=== PATIENT | female | born 1995 | race Caucasian/White ===

== ENCOUNTER 2019-01-27 12:13 | Emergency (ER) | payer OTHER ==
--- NOTE | 2019-01-27 14:03 | EDM.PDOC ---
Scribed by Lulu Fierro 01/27/19 [id number] for Agnieszka Bain NP ED HPI GENERAL MEDICAL PROBLEM - General Chief Complaint: Upper Extremity Injury/Pain Stated Complaint: WORK COMP FINGER [id number] Time Seen by Provider: 01/27/19 12:35 Source of Information: Reports: Patient, RN, RN Notes Reviewed History Limitations: Reports: No Limitations - History of Present Illness INITIAL COMMENTS - FREE TEXT/NARRATIVE: Patient presents to ER with complaint of left pinky finger pain. States she fell in the ambulance on Monday (at work) landing on left pinky finger. She is complaining of bruising and decreased range of motion of finger. Onset: Sudden Onset Date: 01/25/19 Duration: Getting Worse Location: Reports: Upper Extremity, Left Quality: Reports: Ache Severity: Mild Improves with: Reports: None Worsens with: Reports: None Associated Symptoms: Reports: No Other Symptoms - Related Data Allergies Allergy/AdvReac Type Severity Reaction Status Date / Time adhesive Allergy Rash Verified 01/27/19 12:26 amoxicillin Allergy Rash Verified 01/27/19 12:26 erythromycin base Allergy Rash Verified 01/27/19 12:26 latex Allergy Rash Verified 01/27/19 12:26 Home Meds: Home Meds Dextroamphetamine/Amphetamine [Adderall 5 mg Tablet] 01/27/19 [History] LORazepam 1 mg PO BEDTIME 01/27/19 [History] buPROPion [Wellbutrin SR] 150 mg PO QAM 01/27/19 [History] Past Medical History Genitourinary History: Reports: Other (See Below) Other Genitourinary History: Endometriosis Psychiatric History: Reports: Depression Social & Family History - Tobacco Use Smoking Status *Q: Never Smoker - Caffeine Use Caffeine Use: Reports: Energy Drinks Caffeine Use Comment: 1 energy drink daily. - Recreational Drug Use Recreational Drug Use: No Review of Systems - Review of Systems Review Of Systems: ROS reveals no pertinent complaints other than HPI. ED EXAM, GENERAL - Physical Exam Exam: See Below Exam Limited By: No Limitations General Appearance: Alert, WD/WN, No Apparent Distress Eye Exam: Bilateral Eye: EOMI, Normal Inspection, PERRL Ears: Normal External Exam, Normal Canal, Hearing Grossly Normal, Normal TMs Nose: Normal Inspection, Normal Mucosa, No Blood Throat/Mouth: Normal Inspection, Normal Lips, Normal Teeth, Normal Gums, Normal Oropharynx, Normal Voice, No Airway Compromise Head: Atraumatic, Normocephalic Neck: Normal Inspection, Supple, Non-Tender, Full Range of Motion Respiratory/Chest: No Respiratory Distress, Lungs Clear, Normal Breath Sounds, No Accessory Muscle Use, Chest Non-Tender Cardiovascular: Normal Peripheral Pulses, Regular Rate, Rhythm, No Edema, No Gallop, No JVD, No Murmur, No Rub GI/Abdominal: Normal Bowel Sounds, Soft, Non-Tender, No Organomegaly, No Distention, No Abnormal Bruit, No Mass (Female) Exam: Deferred Rectal (Female) Exam: Deferred Back Exam: Normal Inspection, Full Range of Motion, NT Extremities: Other (left 5th digit ecchymosis ventral. Decreased range of motion. Abrasion dorsal.) Neurological: Alert, Oriented, CN II-XII Intact, Normal Cognition, Normal Gait, Normal Reflexes, No Motor/Sensory Deficits Psychiatric: Normal Affect, Normal Mood Skin Exam: Other (abrasion left pinky dorsal.) Lymphatic: No Adenopathy Course - Vital Signs Last Recorded V/S: Last Vital Signs Temp 98.3 F 01/27/19 12:28 Pulse 100 01/27/19 12:28 Resp 16 01/27/19 12:28 BP 154/83 H 01/27/19 12:28 Pulse Ox 100 01/27/19 12:28 - Orders/Labs/Meds Orders: Active Orders 24 hr Category Date Time Status Fingers Fifth Digit Lt F4 [CR] Urgent Exams 01/27/19 12:33 Taken - Radiology Interpretation Free Text/Narrative:: left pinky xray: FINDINGS: Bones/joints: No acute fracture. No dislocation. Alignment is normal. Bone mineralization is normal. No erosions are seen. No significant degenerative change. Soft tissues: No focal soft tissue swelling. IMPRESSION: No acute osseous abnormality. Thank you for allowing us to participate in the care of your patient. Dictated and Authenticated by: Jordyn Frederick MD 01/27/2019 2:01 PM Central Time ([place] & [place]) See rad report Departure - Departure Time of Disposition: 12:58 Disposition: Home, Self-Care 01 Condition: Good Clinical Impression: Sprain of finger of left hand Qualifiers: Encounter type: initial encounter Finger: little finger Sprain of finger site: interphalangeal joint Qualified Code(s): S63.637A - Sprain of interphalangeal joint of left little finger, initial encounter - Discharge Information *PRESCRIPTION DRUG MONITORING PROGRAM REVIEWED*: No *COPY OF PRESCRIPTION DRUG MONITORING REPORT IN PATIENT CHIDI: No Instructions: Finger Sprain, Adult, [id number] Forms: ED Department Discharge Additional Instructions: May use Tylenol and/or Ibuprofen as directed for pain Use finger splint as tolerated Follow up with your primary care facility as necessary - My Orders Last 24 Hours: My Active Orders 01/27/19 12:33 Fingers Fifth Digit Lt F4 [CR] Urgent - Assessment/Plan Last 24 Hours: My Active Orders 01/27/19 12:33 Fingers Fifth Digit Lt F4 [CR] Urgent I have read and agree with the documentation that has been completed regarding this visit. By signing this record, I attest that the documentation was completed in my physical presence and is an accurate record of the encounter.
== END 2019-01-27 13:04 | disposition home or self-care (01) ==
LOC: DL.ED 12:13
DX: S63.637A Sprain of interphalangeal joint of left little finger, initial encounter (principal); F32.9 Major depressive disorder, single episode, unspecified; Z79.899 Other long term (current) drug therapy; Z88.1 Allergy status to other antibiotic agents; Z88.8 Allergy status to other drugs, medicaments and biological substances; Z91.040 Latex allergy status; Z91.048 Other nonmedicinal substance allergy status; W19.XXXA Unspecified fall, initial encounter; Y92.89 Other specified places as the place of occurrence of the external cause; Y99.0 Civilian activity done for income or pay
CPT/HCPCS: 73140-F4; 99283-25

== ENCOUNTER 2019-04-08 22:42 | Emergency (ER) | payer OTHER ==
[~2019-04-08 22:42] MED LIST: Diphtheria,Pertussis(Acell),Tetanus Vaccine 0.5 ML SDV IM ONE
--- NOTE | 2019-04-08 23:24 | EDM.PDOC ---
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) Left Anterior Hand Pain Score (Numeric/FACES): 1 - Related Data Allergies Allergy/AdvReac Type Severity Reaction Status Date / Time adhesive Allergy Rash Verified 04/08/19 22:32 amoxicillin Allergy Rash Verified 04/08/19 22:32 erythromycin base Allergy Rash Verified 04/08/19 22:32 latex Allergy Rash Verified 04/08/19 22:32 Past Medical History - Past Health History Medical/Surgical History: Denies Medical/Surgical History HEENT History: Reports: None Cardiovascular History: Reports: Heart Murmur Respiratory History: Reports: None Gastrointestinal History: Reports: None Genitourinary History: Reports: Other (See Below) Other Genitourinary History: Endometriosis 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 Musculoskeletal History: Reports: Fracture Other Musculoskeletal History: LEFT ulna Psychiatric History: Reports: Depression Endocrine/Metabolic History: Reports: None Hematologic History: Reports: None Immunologic History: Reports: None Oncologic (Cancer) History: Reports: None Dermatologic History: Reports: None - Infectious Disease History Infectious Disease History: Reports: Chicken Pox - Past Surgical History Head Surgeries/Procedures: Reports: None HEENT Surgical History: Reports: None Cardiovascular Surgical History: Reports: None Respiratory Surgical History: Reports: None GI Surgical History: Reports: None Female Surgical History: Reports: None Endocrine Surgical History: Reports: None Musculoskeletal Surgical History: Reports: Shoulder Surgery Other Musculoskeletal Surgeries/Procedures:: LEFT Dermatological Surgical History: Reports: None Social & Family History - Family History Family Medical History: Noncontributory - Tobacco Use Smoking Status *Q: Never Smoker Second Hand Smoke Exposure: No - Caffeine Use Caffeine Use: Reports: Energy Drinks Caffeine Use Comment: 1 energy drink daily. - Recreational Drug Use Recreational Drug Use: No ED ROS GENERAL - Review of Systems Review Of Systems: See Below Constitutional: Reports: No Symptoms Musculoskeletal: Reports: Hand Pain Skin: Reports: No Symptoms Psychiatric: Reports: No Symptoms ED EXAM, SKIN/RASH Exam: See Below Exam Limited By: No Limitations General Appearance: Alert, WD/WN, No Apparent Distress Extremities: Normal Inspection, Normal Range of Motion, Non-Tender, No Pedal Edema, Normal Capillary Refill, Other (0.2 cm superficial laceration on the palm of the left hand.) Lymphatic: No Adenopathy Course - Vital Signs Last Recorded V/S: Last Vital Signs Temp 98 F 04/08/19 22:23 Pulse 94 04/08/19 22:23 Resp 18 04/08/19 22:23 BP 139/81 04/08/19 22:23 Pulse Ox 100 04/08/19 22:23 - Orders/Labs/Meds Meds: Medications Discontinued Medications Generic Name Dose Route Start Last Admin Trade Name Freq PRN Reason Stop Dose Admin Diphtheria/Tetanus/Acell Pertussis 0.5 ml 04/08/19 22:41 04/08/19 22:47 Adacel IM 04/08/19 22:42 0.5 ml .ONCE ONE Administration - Re-Assessments/Exams Free Text/Narrative Re-Assessment/Exam: Laceration cleaned with bandaid applied. Tetanus shot administered. Encouraged patient to keep wound clean. Departure - Departure Time of Disposition: 22:49 Disposition: Home, Self-Care 01 Clinical Impression: Laceration - Discharge Information Instructions: Puncture Wound, [id number] Referrals: PCP,Unobtain [Ordering Only Provider] - Forms: ED Department Discharge Additional Instructions: Follow up with PCP. Sepsis Event Note - Evaluation Sepsis Screening Result: No Definite Risk - Focused Exam Date Exam was Performed: 04/10/19 Time Exam was Performed: 04:03
== END 2019-04-08 22:50 | disposition home or self-care (01) ==
LOC: DL.ED 22:42
DX: S61.412A Laceration without foreign body of left hand, initial encounter (principal); Z23 Encounter for immunization; Z88.8 Allergy status to other drugs, medicaments and biological substances; Z88.1 Allergy status to other antibiotic agents; Z91.040 Latex allergy status; X58.XXXA Exposure to other specified factors, initial encounter
CPT/HCPCS: 90471; 90715; 99283